=== PATIENT | female | born 1970 | race Two or more races ===

== ENCOUNTER 2022-04-30 21:05 | Emergency (ER) | payer MEDICAID, OTHER ==
[~2022-04-30] VITALS: Ht 167.6 cm; Wt 71.7 kg
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
[2022-04-30] MEDS ORDERED: IBUPROFEN 400 MG TABLET ONE (22:24)
[2022-04-30] MEDS ORDERED: IBUPROFEN 400 MG TABLET PO ONE (22:30)
[2022-05-01] VITALS: BP 140/70
== END 2022-05-01 00:59 | disposition home or self-care (01) ==
LOC: ER 21:07
DX: S09.90XA Unspecified injury of head, initial encounter (principal); M62.838 Other muscle spasm; M25.561 Pain in right knee; Z60.2 Problems related to living alone; V49.69XA Unspecified car occupant injured in collision with other motor vehicles in traffic accident, initial encounter; Y93.89 Activity, other specified; Y92.89 Other specified places as the place of occurrence of the external cause; Y99.8 Other external cause status
CPT/HCPCS: 70450-TC; 72050-TC